=== PATIENT | male | born 1960 | race Caucasian/White ===

== ENCOUNTER 2019-12-12 20:46 | Emergency (ER) | payer MEDICARE ==
[2019-12-12 20:51] VITALS: TEMP 97.5
[2019-12-12] MEDS ORDERED: SODIUM CHLORIDE 0.9% 500 ML 500 ML IV STA (21:08)
[2019-12-12] MEDS ORDERED: ASPIRIN 81 MG PO STA (21:08)
--- NOTE | 2019-12-12 21:44 | XR ---
EXAMINATION TYPE: XR chest 2V DATE OF EXAM: 12/12/2019 COMPARISON: 06/28/2013 HISTORY: Chest pain TECHNIQUE: FINDINGS: Heart is normal. There are sternal wires. There is no heart failure. There are no hilar mas ses. Lungs are clear of consolidation. There is minimal pleural reaction at the lung bases. IMPRESSION: Pleural reaction at the lung bases improved compared to last exam. Normal heart.
[2019-12-12 21:46] VITALS: RESP 18
--- NOTE | 2019-12-12 22:24 | ED ---
General Adult HPI - General Chief complaint: Chest Pain Stated complaint: chest pain Time Seen by Provider: 12/12/19 20:54 Source: patient Mode of arrival: ambulatory Limitations: no limitations - History of Present Illness Initial comments: 59-year-old male patient presents to the emergency department today for evaluation of left-sided chest pain and pain beneath the left arm pit. Patient states that this started earlier today and has been gradually worsening. Patient states that her sharp stabbing pains. Patient states he is feeling somewhat short of breath. He did have some sweats earlier in the day but is unsure if it was due to his house being hot. He denies any dizziness or weakness. Denies any nausea or vomiting. Patient does have a history of aortic valve replacement and believes he has had a heart attack in the past. He does have a history of high cholesterol, is a smoker and does have a family history of coronary artery disease. Patient denies any recent rash, fever, chills, abdominal pain, diarrhea, constipation, back pain, numbness, tingling, hematuria, dysuria, urinary urgency, urinary frequency, headache, visual rosado ges, or any other complaints. - Related Data Home Medications Medication Instructions Recorded Confirmed Aspirin EC [Ecotrin Low Dose] 81 mg PO DAILY@0600 12/12/19 12/12/19 Atorvastatin [Lipitor] 40 mg PO HS@1700 12/12/19 12/12/19 Carvedilol [Coreg] 3.125 mg PO BID@0600,1700 12/12/19 12/12/19 Furosemide [Lasix] 40 mg PO DAILY@0600 12/12/19 12/12/19 Losartan [Cozaar] 25 mg PO AC-LUNCH 12/12/19 12/12/19 Omeprazole [PriLOSEC] 20 mg PO DAILY@0600 12/12/19 12/12/19 Spironolactone [Aldactone] 25 mg PO DAILY@0600 12/12/19 12/12/19 Warfarin [Coumadin] 1.5 mg PO SUMOWEFR@1700 12/12/19 12/12/19 Allergies Allergy/AdvReac Type Severity Reaction Status Date / Time No Known Allergies Allergy Verified 12/12/19 21:57 Review of Systems ROS Statement: Those systems with pertinent positive or pertinent negative responses have been documented in the HPI. ROS Other: All systems not noted in ROS Statement are negative. Past Medical History Past Medical History: CVA/TIA History of Any Multi-Drug Resistant Organisms: None Reported Past Surgical History: Cardiac Valve Replacement Additional Past Surgical History / Comment(s): aortic valve replacement Past Psychological History: No Psychological Hx Reported Smoking Status: Current every day smoker Past Alcohol Use History: None Reported Past Drug Use History: None Reported General Exam Limitations: no limitations General appearance: alert, in no apparent distress, other (This is a well- developed, well-nourished adult male patient in no acute distress. Vital signs upon presentation are temperature 97.5F, pulse 78, respirations 20, blood pressure 161/89, pulse ox 99% on room air.) Eye exam: Present: normal appearance, PERRL, EOMI. Absent: scleral icterus, conjunctival injection, periorbital swelling ENT exam: Present: normal exam, normal oropharynx, mucous membranes moist Respiratory exam: Present: normal lung sounds bilaterally, chest wall tenderness (Left anterior). Absent: respiratory distress, wheezes, rales, rhonchi, strid or Cardiovascular Exam: Present: regular rate, normal rhythm, normal heart sounds. Absent: systolic murmur, diastolic murmur, rubs, gallop, clicks GI/Abdominal exam: Present: soft, normal bowel sounds. Absent: distended, tenderness, guarding, rebound, rigid Extremities exam: Present: normal inspection, full ROM, normal capillary refill, other (Skin to the upper extremities is pink, warm, dry. Cap refills less than 3 seconds. Radial pulses 2+ and equal bilaterally). Absent: tenderness, pedal edema, joint swelling, calf tenderness Neurological exam: Present: alert, oriented X3, CN II-XII intact Psychiatric exam: Present: normal affect, normal mood Skin exam: Present: warm, dry, intact, normal color. Absent: rash Course Vital Signs 12/12/19 12/12/19 12/12/19 20:49 21:45 23:22 Temperature 97.5 F L Pulse Rate 78 91 73 Respiratory 20 18 18 Rate Blood Pressure 161/89 144/66 130/73 O2 Sat by Pulse 99 98 96 Oximetry 12/13/19 00:35 Temperature Pulse Rate 77 Respiratory 18 Rate Blood Pressure 124/70 O2 Sat by Pulse 94 L Oximetry EKG Findings - EKG Comments: EKG Findings:: EKG obtained at 2055 shows normal sinus rhythm with a ventricular rate is 74, ID interval 140, QRS duration 116, QT 402, QTc 446. No evidence of ST elevation or depression. Medical Decision Making - Medical Decision Making 59-year-old male patient with past medical history significant for aortic valve replacement and RI presents to the emergency department today for evaluation of left sided chest pain with pain beneath the left armpit. Patient states the pain does worsen with different positions of his arm. He did have reproducible pain to palpation over the left chest. Neurovascular status is intact. EKG showed normal sinus rhythm. Initial labs reviewed and showed negative troponin. Given patient's history do did offer repeat troponin 3 hours versus observation admission, patient opted to have his labs redrawn. Repeat troponin was also negative. Given the reproducible and atypical nature of his pain we are comfortable discharge home at this time. We will discharge home to follow- up with his primary care physician for recheck in 1-2 days. Return parameters were discussed in detail. He verbalizes understanding and agrees with this plan. - Lab Data Result diagrams: 12/12/19 21:01 12/12/19 21:01 Lab Results 12/12/19 12/12/19 12/12/19 Range/Units 21:01 21:01 21: WBC 9.8 (3.8-10.6) k/uL RBC 5.22 (4.30-5.90) m/uL Hgb 14.7 (13.0-17.5) gm/dL Hct 44.0 (39.0-53.0) % MCV 84.3 (80.0-100.0) fL MCH 28.2 (25.0-35.0) pg MCHC 33.4 (31.0-37.0) g/dL RDW 14.5 (11.5-15.5) % Plt Count 233 (150-450) k/uL Neutrophils % 69 % Lymphocytes % 18 % Monocytes % 6 % Eosinophils % 5 % Basophils % 1 % Neutrophils # 6.8 (1.3-7.7) k/uL Lymphocytes # 1.7 (1.0-4.8) k/uL Monocytes # 0.6 (0-1.0) k/uL Eosinophils # 0.5 (0-0.7) k/uL Basophils # 0.1 (0-0.2) k/uL PT 18.6 H (9.0-12.0) sec INR 1.9 H (<1.2) APTT 32.9 H (22.0-30.0) sec D-Dimer 0.36 (<0.60) mg/L FEU Sodium 136 L (137-145) mmol/L Potassium 4.0 (3.5-5.1) mmol/L Chloride 105 (98-107) mmol/L Carbon Dioxide 23 (22-30) mmol/L Anion Gap 8 mmol/L BUN 16 (9-20) mg/dL Creatinine 0.89 (0.66-1.25) mg/dL Est GFR (CKD-EPI)AfAm >90 (>60 ml/min/1.73 sqM) Est GFR (CKD-EPI)NonAf >90 (>60 ml/min/1.73 sqM) Glucose 156 H (74-99) mg/dL Calcium 9.2 (8.4-10.2) mg/dL Magnesium 1.9 (1.6-2.3) mg/dL Total Bilirubin 1.2 (0.2-1.3) mg/dL AST 34 (17-59) U/L ALT 18 (4-49) U/L Alkaline Phosphatase 117 (38-126) U/L Troponin I (0.000-0.034) ng/mL Total Protein 7.1 (6.3-8.2) g/dL Albumin 4.2 (3.5-5.0) g/dL 12/12/19 12/13/19 Range/Units 21:01 00:28 WBC (3.8-10.6) k/uL RBC (4.30-5.90) m/uL Hgb (13.0-17.5) gm/dL Hct (39.0-53.0) % MCV (80.0-100.0) fL MCH (25.0-35.0) pg MCHC (31.0-37.0) g/dL RDW (11.5-15.5) % Plt Count (150-450) k/uL Neutrophils % % Lymphocytes % % Monocytes % % Eosinophils % % Basophils % % Neutrophils # (1.3-7.7) k/uL Lymphocytes # (1.0-4.8) k/uL Monocytes # (0-1.0) k/uL Eosinophils # (0-0.7) k/uL Basophils # (0-0.2) k/uL PT (9.0-12.0) sec INR (<1.2) APTT (22.0-30.0) sec D-Dimer (<0.60) mg/L FEU Sodium (137-145) mmol/L Potassium (3.5-5.1) mmol/L Chloride (98-107) mmol/L Carbon Dioxide (22-30) mmol/L Anion Gap mmol/L BUN (9-20) mg/dL Creatinine (0.66-1.25) mg/dL Est GFR (CKD-EPI)AfAm (>60 ml/min/1.73 sqM) Est GFR (CKD-EPI)NonAf (>60 ml/min/1.73 sqM) Glucose (74-99) mg/dL Calcium (8.4-10.2) mg/dL Magnesium (1.6-2.3) mg/dL Total Bilirubin (0.2-1.3) mg/dL AST (17-59) U/L ALT (4-49) U/L Alkaline Phosphatase (38-126) U/L Troponin I <0.012 <0.012 (0.000-0.034) ng/mL Total Protein (6.3-8.2) g/dL Albumin (3.5-5.0) g/dL - Radiology Data Radiology results: report reviewed, image reviewed Two-view x-ray of the chest is obtained. Report is reviewed in its entirety. Impression by Dr. Lindsay shows pleural reaction at the lung bases improved compared to last exam. Normal heart. Disposition Clinical Impression: Chest pain Disposition: HOME SELF-CARE Condition: Good Instructions (If sedation given, give patient instructions): Chest Pain (ED) Additional Instructions: Follow-up with your primary care physician for recheck in 1-2 days. Follow-up with your manager of disaster recovery in 1-2 days. Return to the emergency department immediately for any new, worsening, or concerning symptoms. Is patient prescribed a controlled substance at d/c from ED?: No Referrals: Dee Vogel MD [Primary Care Provider] - 1-2 days Time of Disposition: 01:23
[2019-12-12 23:15] LABS: ALT 18 U/L (4-49); AST 34 U/L (17-59); African American GFR (CKD) >90 (>60 ml/min/1.73 sqM); Albumin 4.2 g/dL (3.5-5.0); Alkaline Phosphatase 117 U/L (38-126); Anion Gap 8 mmol/L; Blood Urea Nitrogen 16 mg/dL (9-20); Calcium 9.2 mg/dL (8.4-10.2); Carbon Dioxide 23 mmol/L (22-30); Chloride 105 mmol/L (98-107); Glucose 156 mg/dL (74-99); Magnesium 1.9 mg/dL (1.6-2.3); Non-African American GFR(CKD) >90 (>60 ml/min/1.73 sqM); Sodium 136 mmol/L (137-145); Total Bilirubin 1.2 mg/dL (0.2-1.3); Total Protein 7.1 g/dL (6.3-8.2)
[2019-12-12 23:29] LABS: Basophils # (A) 0.1 k/uL (0-0.2); Basophils % (A) 1 %; Eosinophils # (A) 0.5 k/uL (0-0.7); Eosinophils % (A) 5 %; HGB 14.7 gm/dL (13.0-17.5); Lymphocytes # (A) 1.7 k/uL (1.0-4.8); Lymphocytes % (A) 18 %; MCH 28.2 pg (25.0-35.0); MCHC 33.4 g/dL (31.0-37.0); MCV 84.3 fL (80.0-100.0); Mean Platelet Volume 8.8; Monocytes # (A) 0.6 k/uL (0-1.0); Monocytes % (A) 6 %; Neutrophils # (A) 6.8 k/uL (1.3-7.7); Neutrophils % (A) 69 %; Platelet Count 233 k/uL (150-450); RBC 5.22 m/uL (4.30-5.90); RDW 14.5 % (11.5-15.5); WBC 9.8 k/uL (3.8-10.6)
[2019-12-12 23:32] LABS: D-Dimer 0.36 mg/L FEU (<0.60); INR 1.9 (<1.2); Partial Thromboplastin Time 32.9 sec (22.0-30.0); Prothrombin Time 18.6 sec (9.0-12.0)
[2019-12-13 00:36] VITALS: BP 124/70; PULSE 77
== END 2019-12-13 01:31 | disposition home or self-care (01) ==
LOC: EC 20:46
DX: R07.89 Other chest pain (principal); M79.622 Pain in left upper arm; R06.02 Shortness of breath; R61 Generalized hyperhidrosis; I25.2 Old myocardial infarction; F17.200 Nicotine dependence, unspecified, uncomplicated; Z79.01 Long term (current) use of anticoagulants; Z79.82 Long term (current) use of aspirin; Z79.899 Other long term (current) drug therapy; Z95.2 Presence of prosthetic heart valve; Z86.73 Personal history of transient ischemic attack (TIA), and cerebral infarction without residual deficits; Z82.49 Family history of ischemic heart disease and other diseases of the circulatory system
CPT/HCPCS: 36415; 71046; 80053; 83735; 84484; 85025; 85379; 85610; 85730; 93005; 96360; 99285

== ENCOUNTER 2022-08-09 14:56 | Emergency (ER) | payer MEDICARE ==
[2022-08-09 15:06] VITALS: BP 153/78; PULSE 90; RESP 16; TEMP 98.2
[2022-08-09 17:28] LABS: Basophils # (A) 0.1 k/uL (0-0.2); Basophils % (A) 1 %; Eosinophils # (A) 0.4 k/uL (0-0.7); Eosinophils % (A) 4 %; HCT 43.5 % (39.0-53.0); HGB 14.5 gm/dL (13.0-17.5); Lymphocytes # (A) 1.4 k/uL (1.0-4.8); Lymphocytes % (A) 12 %; MCH 28.8 pg (25.0-35.0); MCHC 33.4 g/dL (31.0-37.0); MCV 86.4 fL (80.0-100.0); Mean Platelet Volume 8.6; Monocytes # (A) 0.5 k/uL (0-1.0); Monocytes % (A) 4 %; Neutrophils # (A) 8.8 k/uL (1.3-7.7); Neutrophils % (A) 77 %; Platelet Count 302 k/uL (150-450); RBC 5.04 m/uL (4.30-5.90); RDW 14.9 % (11.5-15.5); WBC 11.4 k/uL (3.8-10.6)
[2022-08-09 18:07] LABS: ALT 18 U/L (4-49); AST 33 U/L (17-59); African American GFR (CKD) >90 (>60 ml/min/1.73 sqM); Albumin 4.5 g/dL (3.5-5.0); Alkaline Phosphatase 118 U/L (38-126); Amylase 30 U/L (30-110); Anion Gap 11 mmol/L; Blood Urea Nitrogen 13 mg/dL (9-20); Calcium 9.7 mg/dL (8.4-10.2); Carbon Dioxide 26 mmol/L (22-30); Chloride 103 mmol/L (98-107); Glucose 139 mg/dL (74-99); Lipase 55 U/L (23-300); Non-African American GFR(CKD) 88 (>60 ml/min/1.73 sqM); Sodium 140 mmol/L (137-145); Total Bilirubin 1.4 mg/dL (0.2-1.3); Total Protein 7.5 g/dL (6.3-8.2)
[2022-08-09 18:15] LABS: Appearance,Urine Clear (Clear); Bilirubin,Urine Negative (Negative); Blood,Urine Moderate (Negative); Color,Urine Yellow; Glucose,Urine (UA) Negative (Negative); Ketones,Urine Trace (Negative); Leukocyte Esterase,Urine Negative (Negative); Mucus,Urine Many /hpf; Nitrite,Urine Negative (Negative); PH, Urine 5.5 (5.0-8.0); Protein,Urine Trace (Negative); RBC,Urine 5 /hpf (0-5); Specific Gravity,Urine 1.027 (1.001-1.035); Squamous Epithelial Cell,Urine <1 /hpf (0-4); WBC,Urine 1 /hpf (0-5)
--- NOTE | 2022-08-09 18:18 | ED ---
Abdominal Pain HPI - General Chief Complaint: Abdominal Pain Stated Complaint: poss ulcer Time Seen by Provider: 08/09/22 17:13 Source: patient, family, RN notes reviewed Limitations: no limitations - History of Present Illness Initial Comments: This is a 61-year-old male who presents to the emergency department for abdominal pain. He has a known ventral hernia, which he states has been present for several years. Earlier today, he went to bend over and pick something up, at which time he felt a sudden and severe pain shoot from that hernia down to the left lower quadrant and into his groin. States that he has never felt anything like this before. He does believe that his hernia is more pronounced than usual. He has not felt any new lumps or masses in the lower abdomen or groin since this event. He has been trying to rest and sit still since then, and states that the pain is slowly starting to improve. Denies any associated nausea or vomiting. Denies any fevers, chills, sore throat, cough, dyspnea, chest pain, palpitations, nausea, vomiting, diarrhea, back pain, or headaches. MD Complaint: abdominal pain - Related Data Home Medications Medication Instructions Recorded Confirmed Aspirin EC [Ecotrin Low Dose] 81 mg PO DAILY@0600 12/12/19 12/12/19 Atorvastatin [Lipitor] 40 mg PO HS@1700 12/12/19 12/12/19 Furosemide [Lasix] 40 mg PO DAILY@0600 12/12/19 12/12/19 Losartan [Cozaar] 25 mg PO AC-LUNCH 12/12/19 12/12/19 Omeprazole [PriLOSEC] 20 mg PO DAILY@0600 12/12/19 12/12/19 Spironolactone [Aldactone] 25 mg PO DAILY@0600 12/12/19 12/12/19 Warfarin [Coumadin] 1.5 mg PO SUMOWEFR@17012/12/19 12/12/19 carvediloL [Coreg] 3.125 mg PO BID@0600,1700 12/12/19 12/12/19 Allergies Allergy/AdvReac Type Severity Reaction Status Date / Time No Known Allergies Allergy Verified 08/09/22 15:03 Review of Systems ROS Statement: Those systems with pertinent positive or pertinent negative responses have been documented in the HPI. ROS Other: All systems not noted in ROS Statement are negative. Past Medical History Past Medical History: CVA/TIA History of Any Multi-Drug Resistant Organisms: None Reported Past Surgical History: Cardiac Valve Replacement Additional Past Surgical History / Comment(s): aortic valve replacement Past Psychological History: No Psychological Hx Reported Past Alcohol Use History: None Reported Past Drug Use History: None Reported General Exam General appearance: alert, in no apparent distress Head exam: Present: atraumatic, normocephalic, normal inspection Respiratory exam: Present: normal lung sounds bilaterally. Absent: respiratory distress, wheezes, rales, rhonchi, stridor Cardiovascular Exam: Present: regular rate, normal rhythm, normal heart sounds. Absent: systolic murmur, diastolic murmur, rubs, gallop, clicks GI/Abdominal exam: Present: soft, normal bowel sounds, other (Palpable ventral hernia that is not reducible and no other masses or palpable irregularities.). Absent: tenderness Neurological exam: Present: alert, oriented X3, CN II-XII intact Psychiatric exam: Present: normal affect, normal mood Skin exam: Present: warm, dry, intact, normal color. Absent: rash Course Vital Signs 08/09/22 15:03 Temperature 98.2 F Pulse Rate 90 Respiratory 16 Rate Blood Pressure 153/78 O2 Sat by Pulse 98 Oximetry Medical Decision Making - Medical Decision Making This is a 61-year-old male who presents to the emergency department for abdominal pain. Lab work reveals mild leukocytosis and was otherwise nonactionable. A computed tomography scan of the abdomen and pelvis was obtained revealing a fat-containing ventral hernia with mild acute surrounding inflammatory changes. He was also noted to have a very small umbilical hernia and bilateral inguinal hernias. Additionally, the computed tomography scan also revealed a possible gastritis. Findings were discussed with the patient and Dr. Santamaria. Dr. Santamaria evaluated the patient as well, and we found that the ventral hernia was not reducible. However, we discussed with the patient that because this contains fat as opposed to bowels, is is less of a cause for concern. Additionally, because the patient states that his pain and the size of the hernia is back to the normal level, he is stable for discharge home. Strict return parameters discussed, in that if the pain returns he should return to the emergency department immediately. He should also consider following up with his surgeon to discuss possible surgical repair. He is otherwise instructed to use cool compresses and alternate with ibuprofen and Tylenol as needed for pain relief and to avoid any excess lifting or bending for the meantime. Return precautions reviewed in depth, the patient is instructed to return to the emergency department with any new, worsening, or concerning symptoms. Patient verbalized understanding. This case was discussed in detail with the attending ED physician. Presentation, findings, and treatment plan discussed in detail as well. - Lab Data Result diagrams: 08/09/22 16:17 08/09/22 16:17 Lab Results 08/09/22 08/09/22 08/09/22 Range/Units 16:17 16:17 16:17 WBC 11.4 H (3.8-10.6) k/uL RBC 5.04 (4.30-5.90) m/uL Hgb 14.5 (13.0-17.5) gm/dL Hct 43.5 (39.0-53.0) % MCV 86.4 (80.0-100.0) fL MCH 28.8 (25.0-35.0) pg MCHC 33.4 (31.0-37.0) g/dL RDW 14.9 (11.5-15.5) % Plt Count 302 (150-450) k/uL MPV 8.6 Neutrophils % 77 % Lymphocytes % 12 % Monocytes % 4 % Eosinophils % 4 % Basophils % 1 % Neutrophils # 8.8 H (1.3-7.7) k/uL Lymphocytes # 1.4 (1.0-4.8) k/uL Monocytes # 0.5 (0-1.0) k/uL Eosinophils # 0.4 (0-0.7) k/uL Basophils # 0.1 (0-0.2) k/uL Sodium 140 (137-145) mmol/L Potassium 4.0 (3.5-5.1) mmol/L Chloride 103 (98-107) mmol/L Carbon Dioxide 26 (22-30) mmol/L Anion Gap 11 mmol/L BUN 13 (9-20) mg/dL Creatinine 0.94 (0.66-1.25) mg/dL Est GFR (CKD-EPI)AfAm >90 (>60 ml/min/1.73 sqM) Est GFR (CKD-EPI)NonAf 88 (>60 ml/min/1.73 sqM) Glucose 139 H (74-99) mg/dL Plasma Lactic Acid Marquise (0.7-2.0) mmol/L Calcium 9.7 (8.4-10.2) mg/dL Total Bilirubin 1.4 H (0.2-1.3) mg/dL AST 33 (17-59) U/L ALT 18 (4-49) U/L Alkaline Phosphatase 118 (38-126) U/L Troponin I (0.000-0.034) ng/mL Total Protein 7.5 (6.3-8.2) g/dL Albumin 4.5 (3.5-5.0) g/dL Amylase 30 (30-110) U/L Lipase 55 (23-300) U/L Urine Color Yellow Urine Appearance Clear (Clear) Urine pH 5.5 (5.0-8.0) Ur Specific [place] 1.027 (1.001-1.035) Urine Protein Trace H (Negative) Urine Glucose (UA) Negative (Negative) Urine Ketones Trace H (Negative) Urine Blood Moderate H (Negative) Urine Nitrite Negative (Negative) Urine Bilirubin Negative (Negative) Urine Urobilinogen 2.0 (<2.0) mg/dL Ur Leukocyte Esterase Negative (Negative) Urine RBC 5 (0-5) /hpf Urine WBC 1 (0-5) /hpf Ur Squamous Epith Cells <1 (0-4) /hpf Urine Mucus Many H (None) /hpf 08/09/22 08/09/22 Range/Units 16:17 17:57 WBC (3.8-10.6) k/uL RBC (4.30-5.90) m/uL Hgb (13.0-17.5) gm/dL Hct (39.0-53.0) % MCV (80.0-100.0) fL MCH (25.0-35.0) pg MCHC (31.0-37.0) g/dL RDW (11.5-15.5) % Plt Count (150-450) k/uL MPV Neutrophils % % Lymphocytes % % Monocytes % % Eosinophils % % Basophils % % Neutrophils # (1.3-7.7) k/uL Lymphocytes # (1.0-4.8) k/uL Monocytes # (0-1.0) k/uL Eosinophils # (0-0.7) k/uL Basophils # (0-0.2) k/uL Sodium (137-145) mmol/L Potassium (3.5-5.1) mmol/L Chloride (98-107) mmol/L Carbon Dioxide (22-30) mmol/L Anion Gap mmol/L BUN (9-20) mg/dL Creatinine (0.66-1.25) mg/dL Est GFR (CKD-EPI)AfAm (>60 ml/min/1.73 sqM) Est GFR (CKD-EPI)NonAf (>60 ml/min/1.73 sqM) Glucose (74-99) mg/dL Plasma Lactic Acid Marquise 0.9 (0.7-2.0) mmol/L Calcium (8.4-10.2) mg/dL Total Bilirubin (0.2-1.3) mg/dL AST (17-59) U/L ALT (4-49) U/L Alkaline Phosphatase (38-126) U/L Troponin I <0.012 (0.000-0.034) ng/mL Total Protein (6.3-8.2) g/dL Albumin (3.5-5.0) g/dL Amylase (30-110) U/L Lipase (23-300) U/L Urine Color Urine Appearance (Clear) Urine pH (5.0-8.0) Ur Specific [place] (1.001-1.035) Urine Protein (Negative) Urine Glucose (UA) (Negative) Urine Ketones (Negative) Urine Blood (Negative) Urine Nitrite (Negative) Urine Bilirubin (Negative) Urine Urobilinogen (<2.0) mg/dL Ur Leukocyte Esterase (Negative) Urine RBC (0-5) /hpf Urine WBC (0-5) /hpf Ur Squamous Epith Cells (0-4) /hpf Urine Mucus (None) /hpf - Radiology Data Radiology results: report reviewed, image reviewed Disposition Clinical Impression: Ventral hernia Disposition: HOME SELF-CARE Instructions (If sedation given, give patient instructions): Ventral Hernia (ED) Additional Instructions: Return to the emergency department with any new, worsening, or concerning symptoms, especially if your pain worsens. Apply cool compresses and alternate with ibuprofen and Tylenol as needed for pain relief. Avoid lifting for the meantime, as this may further exacerbate the problem. Follow up with your [facility] care provider in 1-2 days. Is patient prescribed a controlled substance at d/c from ED?: No Referrals: Dee Vogel MD [Primary Care Provider] - 1-2 days
--- NOTE | 2022-08-09 19:24 | CT ---
EXAMINATION TYPE: CT abdomen pelvis w con CT DLP: 1319.5 mGycm, Automated exposure control for dose reduction was used. DATE OF EXAM: 08/09/2022 6:13 PM COMPARISON: None. CLINICAL INDICATION:Male, 61 years old with history of Abdominal pain, acute, nonlocalized; Abdominal pain, acute, nonlocalized TECHNIQUE: Axial CT of the abdomen and pelvis. Sagittal and coronal reformats were created on a [employer] workstation. Contrast used:100cc mL of Isovue 300 with IV Contrast, Oral contrast used: without Oral Contrast FINDINGS: LOWER CHEST: Unremarkable ABDOMEN LIVER: Mild low attenuation of the hepatic parenchyma suggesting hepatic steatosis. GALLBLADDER AND BILE DUCTS: Unremarkable. PANCREAS: Unremarkable. SPLEEN: Unremarkable. ADRENAL GLANDS: Unremarkable. KIDNEYS AND URETERS: No evidence of hydronephrosis or renal calculus. The ureters are unremarkable. PELVIS BLADDER: Underdistended. REPRODUCTIVE: Unremarkable. ABDOMEN & PELVIS STOMACH AND BOWEL: Circumferential wall thickening of the pyloric antrum and proximal duodenum (serie s 201, image 31). Duodenum and small bowel are otherwise normal No evidence of bowel obstruction. Col onic diverticulosis without acute abnormality. PERITONEUM: No evidence of pneumoperitoneum or free fluid. VASCULATURE: Infrarenal abdominal aortic aneurysm measuring up to 3.9 x 3.4 cm in width. Moderate gina cified atherosclerosis throughout the abdominal aorta. MUSCULOSKELETAL: Moderate degenerative changes lumbar spine without aggressive osseous abnormality. LYMPH NODES: No gross evidence for lymphadenopathy. SOFT TISSUE/ABDOMINAL WALL: Fat-containing ventral abdominal wall hernia, abdominal wall defect measu res at least 2.5 cm in width. Mesenteric fat within the hernia sac and proximally at the hernia neck demonstrates mild fat stranding. No evidence for ascites. Subcentimeter fat-containing umbilical katlyn ia. Bilateral inguinal hernias. IMPRESSION: 1. Fat-containing ventral abdominal wall hernia with mild internal and proximal fat stranding consis tent with acute inflammatory changes. 2. Distal gastric and duodenal wall thickening. This may relate to focal peristalsis versus gastritis . Correlate with patient presentation and consider further evaluation with endoscopy. 3. Colonic diverticulosis and other incidental findings as detailed above.
== END 2022-08-09 19:57 | disposition home or self-care (01) ==
LOC: EC 14:56 → SUPCPDRO 14:56 → EC 19:57
DX: K43.9 Ventral hernia without obstruction or gangrene (principal); Z79.82 Long term (current) use of aspirin; Z79.899 Other long term (current) drug therapy; Z79.01 Long term (current) use of anticoagulants; Z86.73 Personal history of transient ischemic attack (TIA), and cerebral infarction without residual deficits
CPT/HCPCS: 99284 ×2; 36415; 80053; 82150; 83605; 83690; 84484; 85025; 81001; 74177; Q9967

== ENCOUNTER → 2024-06-08 | Outpatient (CLI) | payer MEDICARE | END | disposition home or self-care (01) | LOC: LABPRL 10:58 | PROVIDERS: ATTEND Nurse Practitioner Family | DX: Z00.00 Encounter for general adult medical examination without abnormal findings (principal); Z12.5 Encounter for screening for malignant neoplasm of prostate; E78.00 Pure hypercholesterolemia, unspecified | CPT/HCPCS: 80061; 80053; 84443; 85027; 82306; 83036; G0103 ==

== ENCOUNTER → 2025-04-12 | Outpatient (CLI) | payer MEDICARE ==
[2025-04-12 12:21] VITALS: BP 122/61; PULSE 62; RESP 16; TEMP 97.9
--- NOTE | 2025-04-12 13:27 | P.SLEEP ---
History of Present Illness DATE: 04/12/2025 CONSULTATION/NEW PATIENT EVALUATION HISTORY OF PRESENT ILLNESS/SLEEP-WAKE EVALUATION: 64-year-old gentleman had b een evaluated in the sleep center for obstructive sleep apnea hypopnea syndrome. I saw the patient in 2016 for treatment of obstructive sleep apnea hypopnea syndrome. Patient continued to use his CPAP equipment every night. Recently received new CPAP unit. I checked CPAP unit. Pressure is 10 cm of water. Usage is 100% of nights, average 7.5 hours per night. Leak is 28 L/min which is acceptable. Apnea hypopnea index is 0.6 which is normal. SLEEP SCHEDULE: Usually sleep schedule from 9 PM to 5 AM 7 days a week. FALLING ASLEEP: No problems with falling asleep. DURING SLEEP: No snoring while patient using CPAP. Patient sleeps through the whole night without awakenings. No history of hypnogogical hallucinations, sleep paralysis, or cataplexy. DURING THE DAY/WAKE STATE: Patient indicates sleepiness during the day. [place] sleepiness scale is 15. Patient may take 2 naps during the day in the morning and afternoon. PAST MEDICAL HISTORY: Hypertension, atrial fibrillation, hyperlipidemia, acid reflux. PAST SURGICAL HISTORY: Aortic valve replacement. MEDICATIONS: Please see below. SOCIAL HISTORY: Please see below. FAMILY HISTORY: Please see below. REVIEW OF SYSTEMS: No snoring on CPAP. No fevers. No double vision. No recent chest pain. No shortness of breath. No abdominal pain. No bleeding episodes. No blood in urine. No seizure episodes. PHYSICAL EXAMINATION: GENERAL: A pleasant patient without any distress. VITAL SIGNS: Please see below, weight 208 pounds, BMI 31.9. HEENT: PERRLA, EOMI. Evaluation of oropharynx showed tongue protrudes midline, low position of soft palate Mallampati 4. NECK: Supple. No JVD. Thyroid is not palpable. 16-1/4 inches in circumference. LUNGS: Clear to percussion and to auscultation. Good air exchange. No wheezing or rhonchi. HEART: S1, S2 regular. No murmurs, gallops or rubs. ABDOMEN: Soft and nontender. Bowel sounds are present. No organomegaly appreciated. EXTREMITIES: No clubbing or cyanosis. ASSEMBLER INSTALLER GENERAL: Awake, alert, and oriented x3. Cranial nerves 2 to 7 intact. There is no fasciculation or atrophy noted. No focal deficits observed. ASSESSMENT: 1. History of obstructive sleep apnea hypopnea syndrome for many years. Patient continue to use CPAP equipment every night for the whole night. Normal apnea hypopnea index reading from CPAP, no snoring with CPAP. Extremely low position of soft palate Mallampati 4. 2. Mild obesity, BMI 31.9. 3. Hypertension. 4. History of atrial fibrillation. 5 status post aortic valve replacement. 6 . Hyperlipidemia. 7. Acid reflux. PLAN: 1. Continue to use CPAP equipment every night for the whole night. 2. Will maintain prescription for all necessary CPAP supplies. 3. Preferable position during sleep on the side. 4. No driving if patient feels any sleepiness. Patient is aware of civil and criminal liability for unsafe driving. 5. Sleep hygiene with regular sleep time for at least 7.5-8 hours. 6. Watching weight. 7. Follow-up visit in 8 months. Thank you very much for referring this patient for consultation. Sincerely, Quinn Young MD, PhD, FAASM. Diplomat of [employer], Sleep Medicine Board by [place] [facility] [place] Past Medical History Past Medical History: CVA/TIA, Sleep Apnea/CPAP/BIPAP History of Any Multi-Drug Resistant Organisms: None Reported Past Surgical History: Cardiac Valve Replacement Additional Past Surgical History / Comment(s): aortic valve replacement Past Anesthesia/Blood Transfusion Reactions: No Reported Reaction Past Psychological History: No Psychological Hx Reported Smoking Status: Current every day smoker Past Alcohol Use History: None Reported Past Drug Use History: None Reported - Past Family History Mother Family Medical History: Fibromyalgia Additional Family Medical History / Comment(s): restless legs Father Family Medical History: Coronary Artery Disease (CAD), Hyperlipidemia, Hypertension, Osteoarthritis (OA) Additional Family Medical History / Comment(s): mental illness Medications and Allergies Home Medications Medication Instructions Recorded Confirmed Type Aspirin EC [Ecotrin Low Dose] 81 mg PO DAILY@0600 12/12/19 04/12/25 History Atorvastatin [Lipitor] 40 mg PO HS@1700 12/12/19 12/12/19 History Furosemide [Lasix] 20 mg PO DAILY@0600 12/12/19 04/12/25 History Losartan [Cozaar] 25 mg PO AC-LUNCH 12/12/19 12/12/19 History Omeprazole [PriLOSEC] 20 mg PO DAILY@0600 12/12/19 12/12/19 History Spironolactone [Aldactone] 25 mg PO DAILY@0600 12/12/19 04/12/25 History Warfarin [Coumadin] 1.5 mg PO SUMOWEFR@1700 12/12/19 04/12/25 History carvediloL [Coreg] 3.125 mg PO BID@0600,1700 12/12/19 04/12/25 History Cholecalciferol (Vitamin D3) 50 mcg PO DAILY 04/12/25 04/12/25 History [Vitamin D3 (50 Mcg = 2000 Iu)] Rosuvastatin [Crestor] 40 mg PO DAILY 04/12/25 04/12/25 History Sacubitril/Valsartan [Entresto 24 24 mg PO DAILY 04/12/25 04/12/25 History mg-26 mg Tablet] Allergies Allergy/AdvReac Type Severity Reaction Status Date / Time No Known Allergies Allergy Verified 08/09/22 15:03 Physical Exam Vitals: Vital Signs Temp Pulse Resp BP Pulse Ox 04/12/25 12:20 97.9 F 62 16 122/61 99 Intake and Output 04/11/25 04/12/25 04/12/25 22:59 06:59 14:59 Other: Weight 94.347 kg Sleep Note - Sleep Data ESS Total: 15 - Sleep Note Sleep Note: Temperature: 97.9 F Pulse Rate: 62 Respiratory Rate: 16 Blood Pressure: 122/61 SpO2: 99 Height: 5 ft 8 in Weight: 94.347 kg BMI: Neck Circumference: 16.5
== END ==
LOC: 3 N SLEEP 11:20
PROVIDERS: ATTEND Internal Medicine
DX: G47.33 Obstructive sleep apnea (adult) (pediatric) (principal); E66.9 Obesity, unspecified; I10 Essential (primary) hypertension; E78.5 Hyperlipidemia, unspecified; K21.9 Gastro-esophageal reflux disease without esophagitis; F17.200 Nicotine dependence, unspecified, uncomplicated; Z68.31 Body mass index [BMI] 31.0-31.9, adult; Z86.79 Personal history of other diseases of the circulatory system; Z95.2 Presence of prosthetic heart valve; Z99.89 Dependence on other enabling machines and devices
CPT/HCPCS: 99211